=== PATIENT | female | born 1995 | race Hispanic/Latino ===

== ENCOUNTER 2020-06-27 03:37 | Emergency (ER) | payer OTHER ==
[2020-06-27] MEDS ORDERED: SODIUM CHLORIDE 0.9% 1000ML 1,000 ML IV ONE (03:49)
[2020-06-27] MEDS ORDERED: ACETAMINOPHEN EXTRA STRENGTH 500 MG TABLET ONE (04:20)
[2020-06-27] MEDS ORDERED: CEFTRIAXONE SODIUM 1 GM ONE (06:04)
== END 2020-06-27 07:10 | disposition home or self-care (01) ==
LOC: EDH 03:37
DX: N39.0 Urinary tract infection, site not specified (principal); N93.8 Other specified abnormal uterine and vaginal bleeding; E66.9 Obesity, unspecified; Z68.41 Body mass index [BMI] 40.0-44.9, adult
CPT/HCPCS: 36415; 76856; 80053; 81001; 81025; 83605; 85025; 86850; 86900; 86901; 87040 ×2; 87088; 96361; 96374; 99284; J0696; J7030

== ENCOUNTER 2020-10-15 20:04 | Emergency (ER) | payer OTHER ==
[~2020-10-15] VITALS: Ht 157.5 cm; Wt 77.1 kg
[2020-10-15 20:40] LABS: BASOPHILS % (AUTO) 0.4 % (0.0-5.0); EOSINOPHILS % (AUTO) 1.3 % (0.0-8.0); LYMPHOCYTES % (AUTO) 33.8 % (21.0-51.0); MEAN CORPUSCULAR HEMOGLOBIN 26.7 pg (27.0-33.0); MEAN CORPUSCULAR HGB CONC 30.8 g/dL (32.0-36.0); MONOCYTES % (AUTO) 4.5 % (3.0-13.0); NEUTROPHILS % (AUTO) 59.8 % (40.0-77.0); PLATELET COUNT (AUTO) 439 K/uL (130-400); RED CELL DISTRIBUTION WIDTH 14.5 % (11.0-15.5); WHITE BLOOD COUNT (AUTO) 9.7 K/uL (4.8-10.8)
[2020-10-15 20:53] LABS: INR 0.92 (0.85-1.15); PARTIAL THROMBOPLASTIN TIME 31.7 SEC (26.3-35.5)
[2020-10-15 20:58] LABS: CREATININE 0.8 mg/dL (0.5-1.5); POTASSIUM 3.5 mmol/L (3.5-5.1)
[2020-10-15 21:02] LABS: ALBUMIN 3.9 g/dL (3.5-5.0); BILIRUBIN,TOTAL 0.3 mg/dL (0.2-1.0); TOTAL PROTEIN, SERUM 8.8 g/dL (6.0-8.3)
[2020-10-15] MEDS ORDERED: SODIUM CHLORIDE 0.9% 50 ML IV ONE (21:30)
[2020-10-15] MEDS ORDERED: ESTROGENS,CONJUGATED 25 MG/VIAL IVP ONE (21:30)
== END 2020-10-15 22:56 | disposition home or self-care (01) ==
LOC: EDH 20:04
DX: N93.9 Abnormal uterine and vaginal bleeding, unspecified (principal)
CPT/HCPCS: 36415; 80053; 85025; 85730; 85610; 96365; 96366; 99284; J1410

== ENCOUNTER 2020-10-17 21:24 | Emergency (ER) | payer OTHER ==
[2020-10-17 22:47] LABS: APPEARANCE,URINE CLOUDY (CLEAR); BILIRUBIN,URINE NEGATIVE (NEGATIVE); COLOR,URINE RED (YELLOW); GLUCOSE, URINE (UA) NEGATIVE (NEGATIVE); KETONES,URINE 15 mg/dL (NEGATIVE); LEUKOCYTE ESTERASE ,URINE MODERATE (NEGATIVE); NITRATE,URINE POSITIVE (NEGATIVE); OCCULT BLOOD,URINE LARGE (NEGATIVE); PROTEIN,URINE >=300 mg/dL (NEGATIVE)
[2020-10-17 22:50] LABS: HCG,QUAL RESULT NEGATIVE (NEGATIVE)
[2020-10-17] MEDS ORDERED: CEPHALEXIN 500 MG CAPSULE ONE (22:58)
[2020-10-17] MEDS ORDERED: PHENAZOPYRIDINE HCL 200 MG TABLET ONE (22:58)
[2020-10-17] MEDS ORDERED: KETOROLAC TROMETHAMINE 60 MG/2 ML VIAL ONE (22:58)
[2020-10-17 23:03] LABS: RBC,URINE Full Field /HPF (0-1)
[2020-10-17 23:05] LABS: BACTERIA,URINE Few /HPF (None Seen)
== END 2020-10-17 23:38 | disposition home or self-care (01) ==
LOC: EDH 21:24
DX: N94.6 Dysmenorrhea, unspecified (principal); N39.0 Urinary tract infection, site not specified
CPT/HCPCS: 81001; 81025; 87088; 96372; 99283; J1885

== ENCOUNTER 2022-09-05 20:12 | Emergency (ER) | payer OTHER ==
[~2022-09-05] VITALS: Ht 160 cm; Wt 121.1 kg
[2022-09-05 20:58] LABS: APPEARANCE,URINE CLEAR (CLEAR); BILIRUBIN,URINE NEGATIVE (NEGATIVE); COLOR,URINE COLORLESS (YELLOW); GLUCOSE, URINE (UA) NEGATIVE (NEGATIVE); KETONES,URINE NEGATIVE (NEGATIVE); LEUKOCYTE ESTERASE ,URINE NEGATIVE Leu/uL (NEGATIVE); NITRATE,URINE NEGATIVE (NEGATIVE); PH,URINE 5.5 (5.0-8.0); PROTEIN,URINE 50 mg/dL (NEGATIVE); UROBILINOGEN,URINE 0.2 mg/dL (0.2-1.0)
[2022-09-05] MEDS ORDERED: ONDANSETRON 4MG INJ IVP ONE (21:00)
[2022-09-05] MEDS ORDERED: FAMOTIDINE 20MG VIAL IV ONE (21:00)
[2022-09-05] MEDS ORDERED: 0.9%NACL 1000ML 1,000 ML IV ONE (21:00)
[2022-09-05] MEDS ORDERED: KETOROLAC 15MG/ML VIAL (15MG/ML) IV ONE (21:00)
[2022-09-05 21:01] LABS: HCG,QUALITATIVE URINE NEGATIVE (NEGATIVE)
[2022-09-05 21:03] LABS: BASOPHILS % (AUTO) 0.4 % (0.0-5.0); HEMATOCRIT 36.4 % (36-48); LYMPHOCYTES % (AUTO) 16.3 % (21.0-51.0); MEAN CORPUSCULAR HEMOGLOBIN 27.7 pg (27.0-33.0); MEAN CORPUSCULAR HGB CONC 31.3 g/dL (32.0-36.0); MEAN CORPUSCULAR VOLUME 88.3 fL (79-99); MONOCYTES % (AUTO) 6.8 % (3.0-13.0); NEUTROPHILS % (AUTO) 75.1 % (40.0-77.0); PLATELET COUNT (AUTO) 320 K/uL (130-400); RBC,URINE 0-1 /HPF (0-1); RED BLOOD CELL COUNT(AUTO) 4.12 MIL/uL (4.00-5.50); RED CELL DISTRIBUTION WIDTH 14.3 % (11.0-15.5); SQUAMOUS EPITHELIAL CELL,UR RARE /HPF (0-2); WHITE BLOOD COUNT (AUTO) 10.5 K/uL (4.8-10.8)
[2022-09-05 21:06] LABS: CREATININE 1.3 mg/dL (0.5-1.5); POTASSIUM 3.3 mmol/L (3.5-5.1)
[2022-09-05 21:10] LABS: ALBUMIN 3.2 g/dL (3.5-5.0); TOTAL PROTEIN, SERUM 7.5 g/dL (6.0-8.3)
[2022-09-05] MEDS ORDERED: IOHEXOL 350 MG/ML 100ML INFUS..BTL IV ONE (21:28)
[2022-09-05] MEDS ORDERED: POTASSIUM BICARB/CIT AC 25 MEQ TABLET.EFF PO ONE (21:30)
[2022-09-05] MEDS ORDERED: ONDA4TAB10 PO (23:27)
[2022-09-05 23:30] VITALS: BP 115/70
== END 2022-09-05 23:37 | disposition home or self-care (01) ==
LOC: EDH 20:12
DX: R10.31 Right lower quadrant pain (principal); R11.2 Nausea with vomiting, unspecified; Z87.440 Personal history of urinary (tract) infections
CPT/HCPCS: 99285; 74177; 96374; 96375; 96361; 80053; 83690; 85025; 81001; 81025; 36415; J3490; J7030; J2405; J1885; Q9967

== ENCOUNTER 2023-11-25 10:52 | Emergency (ER) | payer OTHER ==
[~2023-11-25] VITALS: Ht 157.5 cm; Wt 124.3 kg
[~2023-11-25 10:52] MED LIST: ONDA4TAB10 PO
[2023-11-25 12:59] LABS: HEMATOCRIT 40.9 % (36-48); MEAN CORPUSCULAR HEMOGLOBIN 28.8 pg (27.0-33.0); MEAN CORPUSCULAR HGB CONC 30.8 g/dL (32.0-36.0); MEAN CORPUSCULAR VOLUME 93.6 fL (79-99); PLATELET COUNT (AUTO) 285 K/uL (130-400); RED BLOOD CELL COUNT(AUTO) 4.37 MIL/uL (4.00-5.50); RED CELL DISTRIBUTION WIDTH 13.8 % (11.0-15.5); WHITE BLOOD COUNT (AUTO) 4.9 K/uL (4.8-10.8)
[2023-11-25 13:13] LABS: BILIRUBIN,TOTAL 0.2 mg/dL (0.2-1.0); CREATININE 0.7 mg/dL (0.5-1.5); POTASSIUM 4.2 mmol/L (3.5-5.1); TOTAL PROTEIN, SERUM 7.3 g/dL (6.0-8.3)
[2023-11-25] MEDS ORDERED: PRED20TA3 PO (14:16)
[2023-11-25] MEDS ORDERED: BROM118S48 PO (14:16)
[2023-11-25] MEDS ORDERED: IBUP-2070 PO (14:16)
[2023-11-25 14:22] LABS: EOSINOPHILS % (MANUAL) 1 % (1-6); LYMPHOCYTES % (MANUAL) 25 % (22-44); MAN.DIFF COMMENT-IMPRESSION MANUAL DIFFERENTIAL; PLATELET MORPHOLOGY COMMENT ADEQUATE; REACTIVE LYMPHOCYTES 7 % (0-0); SEGMENTED NEUTROPHILS % 67 % (40-70); TOTAL CELLS COUNTED 100
[2023-11-25 14:26] VITALS: BP 105/80; PULSE 82; RESP 18; O2SAT 99
== END 2023-11-25 14:28 | disposition home or self-care (01) ==
LOC: EDH 10:52
DX: M54.89 Other dorsalgia (principal); R07.89 Other chest pain; J06.9 Acute upper respiratory infection, unspecified
CPT/HCPCS: 36415; 71046; 80053; 84703; 85025

== ENCOUNTER 2025-01-22 16:15 | Emergency (ER) | payer SELFPAY ==
[~2025-01-22] VITALS: Ht 160 cm; Wt 102.1 kg
[~2025-01-22 16:15] MED LIST changes: +BROM118S48 PO; +IBUP-2070 PO; +ONDA-243 PO; -ONDA4TAB10 PO; +PRED20TA3 PO
--- NOTE | 2025-01-22 17:31 | HMCIMG ---
NECK SOFT TISSUE CLINICAL HISTORY: POSSIBLE SWELLING/FOREIGN BODY COMPARISON: None TECHNIQUE: AP and lateral images were obtained. FINDINGS: The subglottic trachea appears patent. There is no hypopharyngeal dilatation. There is no radiopaque foreign body. IMPRESSION: There is no identified radiopaque foreign body. There is no hypopharyngeal dilatation.
[2025-01-22] MEDS ORDERED: AMOX500C2 PO (17:47)
--- NOTE | 2025-01-22 17:47 | ERN ---
General Chief Complaint: Sore Throat Stated Complaint: THROAT Time Seen by MD: 16:18 Source: patient History of Present Illness Initial Comments PATIENT IS A 29-YEAR-OLD FEMALE COMING IN TO BE EVALUATED FOR MILD DYSPHAGIA. PATIENT STATES THAT THE SYMPTOMS BEGAN EARLIER TODAY. SHE STATES THAT THE WHEN SHE WAS HE FEELS LIKE SOMETHING IS SCRATCH IN HER THROAT. Allergies: Coded Allergies: No Known Allergies (Unverified Allergy, Unknown, 08/29/15) Home Meds Active Scripts Ibuprofen (Ibuprofen) 600 Mg Tablet, 600 MG PO Q6H PRN for PAIN, #30 TAB Prov:[facility] 11/25/23 Prednisone (Prednisone) 20 Mg Tablet, 2 TAB PO DAILY for 5 Days, #10 TAB 0 Refills Prov:HIRAL BUSH [facility] 11/25/23 D-Methorphan Hb/P-Epd HCl/Bpm (Bromfed Dm Cough Syrup) 2 Mg-30 Mg-10 Mg/5 Ml Syrup, 5 ML PO Q6HPRN PRN for COUGH/COLD SYMPTOMS, #240 ML Prov:[facility]AL BUSH [facility] 11/25/23 Ondansetron (Ondansetron Odt) 4 Mg Tab.rapdis, 4 MG PO TID, #10 TAB Prov:NILS HESTER [employer] 09/05/22 Past Medical History Past Medical History: No Pertinent History Medical History Other: OBESITY Past Surgical History: None ROS Dictation CONSTITUTIONAL: NO CHILLS, NO FEVER, NO WEAKNESS, NO DIAPHORESIS, NO MALAISE. HEAD/FACE: NO SIGNS OF TRAUMA. EENT: NO EYE PAIN, NO BLURRED VISION, NO TEARING, NO DOUBLE VISION, NO EAR PAIN, NO EAR DISCHARGE, NO NOSE PAIN, NO NASAL CONGESTION,THROAT PAIN, THROAT SWELLING, NO MOUTH PAIN. RESPIRATORY: NO COUGH, NO ORTHOPNEA, NO SOB, NO STRIDOR, NO WHEEZING. CARDIOVASCULAR: NO CHEST PAIN, NO EDEMA, NO PALPITATIONS, NO SYNCOPE. GASTROINTESTINAL/ABDOMINAL: NO ABDOMINAL PAIN, NO CONSTIPATION, NO DIARRHEA, NO NAUSEA, NO VOMITING. GENITOURINARY: NO ABNORMAL DISCHARGE, NO DYSURIA, NO FREQUENT URINATION, NO HEMATURIA. NO COMPLAINTS OF PAIN IN THE GENITALS. MUSCULOSKELETAL: NO BACK PAIN, NO GOUT, NO JOINT PAIN, NO JOINT SWELLING, NO MUSCLE PAIN, NO MUSCLE STIFFNESS, NO NECK PAIN. INTEGUMENTARY: NO CHANGE IN COLOR, NO CHANGE IN HAIR/NAILS, NO DRYNESS, NO LESION, NO LUMPS, NO RASH. NEUROLOGICAL/PSYCH: NO ANXIETY, NOT DEPRESSED, NO EMOTIONAL PROBLEM, NO HEADACHE, NO NUMBNESS, NO PRE-EXISTING DEFICIT, NO HISTORY OF SEIZURES, NO TREMORS, NO WEAKNESS. HEMATOLOGIC/LYMPHATIC: NOT ANEMIC, NO HISTORY OF BLOOD CLOTS, NO APPARENT BLEEDING, NO BRUISING, GLANDS NOT SWOLLEN. ALL SYSTEMS NEGATIVE, EXCEPT NOTED. Physical Exam Physical Exam Dictation VITAL SIGNS: REVIEWED. GENERAL APPEARANCE: ALERT, ORIENTED X3, NO ACUTE DISTRESS, OBESE. HEAD AND FACE: NON-TRAUMATIC. EYES: PERRL, PINK CONJUNCTIVAS, EYELID NO TRAUMA, ANTERIOR CHAMBER CLEAR. EARS: PINNAS INTACT AND NO SIGNS OF TRAUMA OR ERYTHEMA. EAR CANALS CLEAR AND NO DISCHARGE. TMS NO ERYTHEMA. NOSE: NO DISCHARGE, NO BLEEDING. OROPHARYNX: MOUTH NORMAL, TEETH NO CARIES, TONGUE PINK. PHARYNX ERYTHEMA. T ONSILS EXUDATES, NO ABSCESSES NOTED. MUCOUS MEMBRANE MOIST. NECK: SUPPLE, NON-TENDER, NO THYROMEGALY, NO MASSES, NO JVD, NO BRUITS. BREAST: DEFERRED. CHEST: NO TENDERNESS, NO CREPITUS, NO PARADOXICAL MOVEMENT, NO RETRACTIONS. LUNGS: CLEAR, WELL-VENTILATED, SYMMETRIC, NO RALES, NO WHEEZING, NO RHONCHI, NO STRIDOR, GOOD BREATH SOUNDS BILATERALLY. HEART: REGULAR RATE, REGULAR RHYTHM, NO MURMUR, NO GALLOPS. VASCULAR: NO PERIPHERAL EDEMA. ABDOMEN: SOFT, POSITIVE BOWEL SOUNDS, NONDISTENDED, NO GUARDING, NONTENDER, NO REBOUND, NO MASSES NO HEPATOMEGALY, NO SPLENOMEGALY, NO LOPES'S SIGN, NO HERNIAS. RECTAL: DEFERRED. GENITAL: DEFERRED. NEUROLOGICAL: NORMAL SPEECH, GROSS MOTOR FUNCTION INTACT, GROSS SENSORY FUNCTION INTACT. MUSCULOSKELETAL: NECK NONTENDER, FULL RANGE OF MOTION, BACK NONTENDER, FULL RANGE OF MOTION. EXTREMITIES: NONTENDER, FULL RANGE OF MOTION. SKIN: COLOR PINK, DRY, NO TURGOR, NO RASH, NO LACERATIONS, NO ABRASIONS, NO CONTUSIONS. LYMPHATICS: DEFERRED. Results Laboratory and Microbiology Lab and Micro Result Laboratory Tests Test 01/22/25 16:44 Group A Streptococcus Rapid negative (NEGATIVE) Labs Reviewed?: Yes EKG/XRAY/US/CT/MRI EKG Comment [facility] [address] [place] [address] IMAGING REPORT Signed PATIENT: VIN WEBB MR#: [id number] : 1995 SEX: F AGE: 29 LOCATION: [facility] ORDER [id number] STATUS: REG ER REPORT#: [id number] SERVICE [id number] REASON: PSSIBLE SWELLING/FOREIGN BODY ORDERING PHYSICIAN: ABI MOREIRA MD PROCEDURE: NECK SOFT - NECK SOFT TISSUE NECK SOFT TISSUE CLINICAL HISTORY: POSSIBLE SWELLING/FOREIGN BODY COMPARISON: None TECHNIQUE: AP and lateral images were obtained. FINDINGS: The subglottic trachea appears patent. There is no hypopharyngeal dilatation. There is no radiopaque foreign body. IMPRESSION: There is no identified radiopaque foreign body. There is no hypopharyngeal dilatation. DICTATED BY: ANDREW JOSEPH DO DATE: 01/22/25 172 ELECTRONICALLY SIGNED BY: ANDREW JOSEPH DO DATE: 01/22/25 173 [facility] MDM: DIFFERENTIAL DIAGNOSIS: STREP PHARYNGITIS, PHARYNGITIS, PATIENT IS A 29-YEAR-OLD FEMALE COMING IN TO BE EVALUATED FOR THROAT DISCOMFORT. X-RAY DID NOT DISCLOSE ACUTE FINDINGS. PATIENT ON PHYSICAL EXAM THERE IS ERYTHEMA ON THE OROPHARYNGEAL AREA SUGGESTIVE OF PHARYNGITIS. PATIENT WILL BE DISCHARGED IN STABLE CONDITION WITH DIAGNOSIS OF PHARYNGITIS. MEDICATION WILL BE PROVIDED FOR SYMPTOMATIC RELIEF. ED Course Orders Procedure Category Date Status Time Neck Soft Tissue RAD 01/22/25 Resulted 16:39 Rapid (Group A Strep) LAB 01/22/25 Complete 16:42 ,Urine Test LAB 01/22/25 In Process 17:06 Vital Signs Date Time Temp Pulse Resp B/P (MAP) Pulse Ox O2 Delivery O2 Flow Rate FiO2 01/22/25 16:51 98.2 87 18 100/64 98 Room Air* 0 21 01/22/25 16:17 98.2 99 17 114/85 97 Room Air 0 DX & DISP Disposition: Discharge Departure Impression: Primary Impression: Pharyngitis Condition: Stable Scripts Amoxicillin (Amoxicillin) 500 Mg Capsule 1 CAP PO TID for 10 Days, #30 CAP 0 Refills Prov: ABI MOREIRA MD 01/22/25 Additional Instructions: FOLLOW-UP WITH PRIMARY CARE PROVIDER IN 1 TO 2 DAYS. TAKE MEDICATIONS DIRECTED HERE IN THE EMERGENCY ROOM. OKAY TO CONTINUE HOME MEDICATIONS UNLESS OTHERWISE DISCUSSED DURING YOUR VISIT IN THE EMERGENCY ROOM TODAY. RETURN TO YOUR NEAREST EMERGENCY ROOM IF SYMPTOMS WORSEN OR IF THERE IS NO IMPROVEMENT. CALL 911 IF YOU NEED IMMEDIATE ASSISTANCE. TAKE TYLENOL [id number] NEEDED AND IF NO CONTRAINDICATIONS ARE PRESENT. INCREASE ORAL HYDRATION. A WOUND CULTURE OR URINE CULTURE WAS ORDERED HERE IN THE EMERGENCY ROOM DEPARTMENT PLEASE FOLLOW-UP WITH PRIMARY CARE PROVIDER AND ADVISE THEM TO GET REPEAT PORTS FROM OUR FACILITY. IF YOU HAD ANY SAWYER WRAP/SPLINTS THAT WERE APPLIED HERE, PLEASE DO NOT REMOVE THEM UNTIL YOU SEE YOUR PRIMARY CARE OR SPECIALTY. REFERRALS: Referrals: NONE (PCP) NIK GUSTAFSON MD Time of Disposition: 17:46 ABI MOREIRA MD Jan 22, 2025 17:47
[2025-01-22 17:50] VITALS: BP 110/69; PULSE 75; RESP 17; TEMP 98.6; O2SAT 98
== END 2025-01-22 17:52 | disposition home or self-care (01) ==
LOC: EDH 16:15
DX: J02.9 Acute pharyngitis, unspecified (principal); E66.9 Obesity, unspecified; Z79.52 Long term (current) use of systemic steroids; Z68.39 Body mass index [BMI] 39.0-39.9, adult
CPT/HCPCS: 70360; 81025; 87880; 99284

== ENCOUNTER 2025-08-01 22:21 | Emergency (ER) | payer MEDICAID ==
[~2025-08-01] VITALS: Ht 160 cm; Wt 124.3 kg
[~2025-08-01 22:21] MED LIST changes: +AMOX500C2 PO; +IBUP-1492 PO; -IBUP-2070 PO
--- NOTE | 2025-08-01 22:40 | ERN ---
ED Note History of Present Illness Stated Complaint: C/O VAGINAL SPOTTING WITH CONSTIPATION, OB Chief Complaint: OB<20 weeks gest. Time Seen by MD: 22:28 Time Seen by Midlevel: 22:28 Dictation: The patient is a 29-year-old female who is who presents to the emergency department with complaints of vaginal bleeding onset prior to arrival after trying to use the restroom. Patient reports a just bright red spotting and has not saturated any pads but it became concerned patient reports she is seven weeks . Patient otherwise denies any nausea or vomiting, fevers, abdominal pain, urinary discomfort. Allergies: Coded Allergies: No Known Allergies (Unverified Allergy, Unknown, 08/29/15) Home Meds Active Scripts Amoxicillin (Amoxicillin) 500 Mg Capsule, 1 CAP PO TID for 10 Days, #30 CAP 0 Refills Prov:ABI MOREIRA MD 01/22/25 Ibuprofen (Ibuprofen) 600 Mg Tablet, 600 MG PO Q6H PRN for PAIN, #30 TAB Prov:[facility] 11/25/23 Prednisone (Prednisone) 20 Mg Tablet, 2 TAB PO DAILY for 5 Days, #10 TAB 0 Refi lls Prov:[facility] 11/25/23 D-Methorphan Hb/P-Epd HCl/Bpm (Bromfed Dm Cough Syrup) 2 Mg-30 Mg-10 Mg/5 Ml Syrup, 5 ML PO Q6HPRN PRN for COUGH/COLD SYMPTOMS, #240 ML Prov:[facility] 11/25/23 Ondansetron (Ondansetron Odt) 4 Mg Tab.rapdis, 4 MG PO TID, #10 TAB Prov:NILS HESTER [facility] 09/05/22 Past Medical History Past Medical History: No Pertinent History Additional Past Medical Hx: OBESITY Surgical History: None LMP: Jun 09, 2025 : 2 Para: 1 Aborts: 0 RN Note Reviewed/Agreed w/PFSH: Yes Review of System Dictation Constitutional: Negative for fever,chills, and weight loss Eyes: Negative for injury, pain,redness, and discharge ENT: Negative for injury,pain or swelling Cardiovascular: Negative for chest pain, palpitations, and edema Respiratory: Negative for shortness of breath, cough, and wheezing, Abdomen/GI: Negative for abdominal pain, nausea, vomiting, diarrhea, and constipation Back: Negative for injury and pain : Positive for vaginal bleeding MS/Extremity: Negative for injury and deformity Skin: Negative for rash, and discoloration Neuro: Negative for headache, weakness, numbness, tingling, and seizure Psych: Negative for suicide ideation, homicidal ideation, and hallucinations Initial Vital Sign VS Vital Signs Date Time Temp Pulse Resp B/P (MAP) Pulse Ox O2 Delivery O2 Flow Rate FiO2 08/01/25 22:23 98.8 100 20 127/74 100 Room Air 08/02/25 00:21 0 21 Physical Exam Dictation Vital Signs reviewed General Appearance: Alert, oriented x 3, no acute distress, well developed, nourished. Head and Face: non-traumatic. Eyes: PERRL, pink conjunctivas, eyelid no trauma, anterior chamber with arcus senilis. Ears: Pinnas intact and no signs of trauma or erythema ear canals clear and no discharge TM no erythema Nose: No discharge, no bleeding. Oropharynx: Mouth normal, tongue pink. pharynx clear,no erythema, tonsils no exudates, no abscesses noted, mucous membrane moist Neck: Supple, non-tender, no thyromegaly, no masses, no JVD, no bruits Breast:Deferred Chest:No tenderness, no crepitus, no paradoxical movement, no retractions Lungs:Clear, well-ventilated, symmetric, no rales, no wheezing, no rhonchi, no stridor, good breath sounds bilaterally Heart: Regular rate, regular rhythm, no murmur, no gallops Vascular: no peripheral edema, Abdomen: Soft, positive bowel sounds, nondistended, no guarding, nontender, no rebound, no masses no hepatomegaly, no splenomegaly, no Fay's sign, no hernias. Rectal: Deferred Genital: Deferred Neurological: Normal speech, motor function intact, sensory function intact Musculoskeletal: Neck nontender, full range of motion, back nontender, full range of motion, Extremities: nontender, full range of motion Skin: Color pink, dry, no turgor, no rash, no lacerations, no abrasions, no contusions. Lymphatic: Deferred Results (Laboratory/Radiology) Laboratory/Radiology Laboratory Tests Test 08/01/25 23:29 08/02/25 00:10 White Blood Count 8.5 K/uL (4.8-10.8) Red Blood Count 3.65 MIL/uL (4.00-5.50) L Hemoglobin 10.9 g/dL (12.0-16.0) L Hematocrit 33.3 % (36-48) L Mean Corpuscular Volume 91.2 fL (79-99) Mean Corpuscular Hemoglobin 29.9 pg (27.0-33.0) Mean Corpuscular Hemoglobin Concent 32.7 g/dL (32.0-36.0) Red Cell Distribution Width 13.4 % (11.0-15.5) Platelet Count 329 K/uL (130-400) Mean Platelet Volume 10.4 fL (7.5-10.5) Immature Granulocyte % (Auto) 0.2 % (0-1) Neutrophils (%) (Auto) 66.7 % (40.0-77.0) Lymphocytes (%) (Auto) 25.1 % (21.0-51.0) Monocytes (%) (Auto) 6.0 % (3.0-13.0) Eosinophils (%) (Auto) 1.5 % (0.0-8.0) Basophils (%) (Auto) 0.5 % (0.0-5.0) Neutrophils # (Auto) 5.7 K/uL (1.8-7.7) Lymphocytes # (Auto) 2.1 K/uL (1.0-4.8) Monocytes # (Auto) 0.5 K/uL (0.1-1.0) Eosinophils # (Auto) 0.13 K/uL (0.00-0.70) Basophils # (Auto) 0.04 K/uL (0.00-0.20) Absolute Immature Granulocyte (auto 0.02 K/uL (0-1) Nucleated Red Blood Cells 0.0 % (0.0-0.19) Sodium Level 136 mmol/L (136-145) Potassium Level 3.9 mmol/L (3.5-5.1) Chloride Level 104 mmol/L (101-111) Carbon Dioxide Level 27 mmol/L (21-32) Blood Urea Nitrogen 12 mg/dL (7-18) Creatinine 0.6 mg/dL (0.5-1.0) Glomerular Filtration Rate Calc 125 mL/min (>90) Random Glucose 89 mg/dL (70-105) Total Calcium 8.8 mg/dL (8.5-10.1) Human Chorionic Gonadotropin, Quant 06905 mIU/mL (0-5) H Urine Color LIGHT-YELLOW (YELLOW) Urine Appearance CLEAR (CLEAR) Urine pH 5.5 (5.0-8.0) Urine Specific Sumner 1.018 (1.001-1.031) Urine Protein NEGATIVE mg/dL (NEGATIVE) Urine Glucose (UA) NEGATIVE mg/dL (NEGATIVE) Urine Ketones NEGATIVE mg/dL (NEGATIVE) Urine Occult Blood +- (TRACE) (NEGATIVE) H Urine Nitrate NEGATIVE (NEGATIVE) Urine Bilirubin NEGATIVE mg/dL (NEGATIVE) Urine Urobilinogen 0.2 mg/dL (0.2-1.0) Urine Leukocyte Esterase 250 Darian/uL (NEGATIVE) H Urine RBC 6-10 /HPF (0-1) H Urine WBC 11-25 /HPF (0-1) H Urine Squamous Epithelial Cells FEW /HPF (0-2) Urine Bacteria None /HPF (None Seen) REASON: VAGINAL BLEEDING ORDERING PHYSICIAN: HONORIO BECERRA CLINICAL PSYCHOLOGY TEACHER PROCEDURE: OB <14 - US OB <14 WEEKS EXAM: US Obstetrical, Complete <14 weeks. CLINICAL HISTORY: Vaginal bleeding TECHNIQUE: Transabdominal imaging of the maternal pelvis and a < 14-week gestation with image documentation. COMPARISON: None provided. FINDINGS: GESTATION: Single intrauterine . Gestational age by: LMP: 7 weeks 4 days Sac size (2.83 cm): 8 weeks 1 day CRL (1.32 cm): 7 weeks 4 days Ultrasound average: 7 weeks 6 days HEART RATE: 160 bpm YOLK SAC: Present UTERUS: 7.7 x 4.8 x 7 cm. No myometrial mass identified. CERVIX: Closed. Unremarkable. OVARIES: Right ovary: 2.7 x 1.9 x 2.5 cm, normal flow, with a 1.4 x 1.1 cm corpus luteum cyst. Left ovary: 2.6 x 1.4 x 2.2 cm, normal flow, with a 1.1 x 1.1 cm follicle. FREE FLUID: None. ADDITIONAL FINDINGS: A small subchorionic bleed measuring 0.3 x 0.4 x 1.8 cm. IMPRESSION: Single viable intrauterine with a gestational age of 7 weeks 6 days by ultrasound. Small subchorionic bleed. /[facility] Labs Reviewed?: Yes ED Course ED Course Orders Procedure Category Date Status Time Cbc With Differential LAB 08/01/25 Complete 22:33 Hcg,Quantitative LAB 08/01/25 Complete 22:33 Us Ob <14 Weeks US 08/01/25 Resulted 22:33 Basic Metabolic Panel LAB 08/01/25 Complete 22:33 Urinalysis Profile LAB 08/01/25 Complete 22:33 Culture Urine DONOVAN 08/02/25 In Process 00:34 Ceftriaxone 1g Vial PHA 08/02/25 In Process (Rocephine 1g Inj) 01:00 Current Medications Medications (Trade) Dose Ordered Sig/Adam Route PRN Reason Start Time Stop Time Status Last Admin Dose Admin Ceftriaxone Sodium (ROCEphine 1G INJ) 1 gm ONCE ONCE IM 08/02/25 01:00 08/02/25 01:01 08/02/25 00:54 Vital Signs Date Time Temp Pulse Resp B/P (MAP) Pulse Ox O2 Delivery O2 Flow Rate FiO2 08/02/25 00:21 98.4 92 16 118/72 100 Room Air* 0 21 08/01/25 22:23 98.8 100 20 127/74 100 Room Air Medical Decision Making MDM The patient is a 29-year-old female who is who presents to the emergency department with complaints of vaginal bleeding onset prior to arrival after tr selma to use the restroom. Patient reports a just bright red spotting and has not saturated any pads but it became concerned patient reports she is seven weeks . Patient otherwise denies any nausea or vomiting, abdominal pain, fevers, urinary discomfort. CBC showed no leukocytosis, mild normocytic anemia, chemistry showed normal renal function, hCG levels [id number], urinalysis positive for leukocyte esterase. Patient will be discharged on antibiotics. Ob ultrasound revealed single viable intrauterine with gestational age of seven weeks six days and a small subchorionic bleed. Patient with a only vaginal spotting. No pads saturated. Patient instructed to follow up with the OBGYN. On physical exam patient is in no acute distress, nontoxic appearance, stable vital signs Differential diagnosis: Constipation, threatened , ectopic Need for hospitalization: Patient does not meet criteria for hospitalization. There are no social concerns with this patient. DX & DISP Disposition: Discharge Departure Impression: Primary Impression: 7 weeks gestation of Additional Impressions: Subchorionic bleed, UTI (urinary tract infection) Condition: Stable Scripts Cephalexin Monohydrate (Keflex) 500 Mg Cap 500 MG PO QID for 5 Days, #20 CAP Prov: HONORIO BECERRA 08/02/25 Additional Instructions: Please take your medications as prescribed. Follow up with the your OBGYN as soon as possible. Avoid any strenuous physical activity, no sexual activity, if you develop severe vaginal bleeding or symptoms worsen please return to ER. FOLLOW-UP WITH PRIMARY CARE PROVIDER IN 1 TO 2 DAYS. TAKE MEDICATIONS DIRECTED HERE IN THE EMERGENCY ROOM. OKAY TO CONTINUE HOME MEDICATIONS UNLESS OTHERWISE DISCUSSED DURING YOUR VISIT IN THE EMERGENCY ROOM TODAY. RETURN TO YOUR NEAREST EMERGENCY ROOM IF SYMPTOMS WORSEN OR IF THERE IS NO IMPROVEMENT. CALL 911 IF YOU NEED IMMEDIATE ASSISTANCE. TAKE TYLENOL [id number] NEEDED AND IF NO CONTRAINDICATIONS ARE PRESENT. INCREASE ORAL HYDRATION. A WOUND CULTURE OR URINE CULTURE WAS ORDERED HERE IN THE EMERGENCY ROOM DEPARTMENT PLEASE FOLLOW-UP WITH PRIMARY CARE PROVIDER AND ADVISE THEM TO GET REPEAT PORTS FROM OUR FACILITY. IF YOU HAD ANY SAWYER WRAP/SPLINTS THAT WERE APPLIED HERE, PLEASE DO NOT REMOVE THEM UNTIL YOU SEE YOUR PRIMARY CARE OR SPECIALTY. Referrals: NONE (PCP) Time of Disposition: 01:05 I have reviewed the case, and I agree with, Diagnosis and Plan HONORIO BECERRA Aug 01, 2025 22:40
[2025-08-01 23:38] LABS: IMMATURE GRANULOCYTE ABSOLUTE 0.02 K/uL (0-1); NUCLEATED RED BLOOD CELLS 0.0 % (0.0-0.19); PLATELET COUNT (AUTO) 329 K/uL (130-400); RED BLOOD CELL COUNT(AUTO) 3.65 MIL/uL (4.00-5.50); RED CELL DISTRIBUTION WIDTH 13.4 % (11.0-15.5); WHITE BLOOD COUNT (AUTO) 8.5 K/uL (4.8-10.8)
[2025-08-01 23:45] LABS: CREATININE 0.6 mg/dL (0.5-1.0); GLOMERULAR FILTR. RATE CALC 125.0 mL/min (>90); GLUCOSE,RANDOM 89.0 mg/dL (70-105); SODIUM SERUM 136.0 mmol/L (136-145); UREA NITROGEN, BLOOD 12.0 mg/dL (7-18)
[2025-08-02 00:12] LABS: HCG,QUANTITATIVE 61911.0 mIU/mL (0-5)
--- NOTE | 2025-08-02 00:19 | HMCIMG ---
EXAM: US Obstetrical, Complete <14 weeks. CLINICAL HISTORY: Vaginal bleeding TECHNIQUE: Transabdominal imaging of the maternal pelvis and a < 14-week gestation with image documentation. COMPARISON: None provided. FINDINGS: GESTATION: Single intrauterine . Gestational age by: LMP: 7 weeks 4 days Sac size (2.83 cm): 8 weeks 1 day CRL (1.32 cm): 7 weeks 4 days Ultrasound average: 7 weeks 6 days HEART RATE: 160 bpm YOLK SAC: Present UTERUS: 7.7 x 4.8 x 7 cm. No myometrial mass identified. CERVIX: Closed. Unremarkable. OVARIES: Right ovary: 2.7 x 1.9 x 2.5 cm, normal flow, with a 1.4 x 1.1 cm corpus luteum cyst. Left ovary: 2.6 x 1.4 x 2.2 cm, normal flow, with a 1.1 x 1.1 cm follicle. FREE FLUID: None. ADDITIONAL FINDINGS: A small subchorionic bleed measuring 0.3 x 0.4 x 1.8 cm. IMPRESSION: Single viable intrauterine with a gestational age of 7 weeks 6 days by ultrasound. Small subchorionic bleed. /[place]
[2025-08-02 00:29] LABS: APPEARANCE,URINE CLEAR (CLEAR); GLUCOSE, URINE (UA) NEGATIVE (NEGATIVE); LEUKOCYTE ESTERASE ,URINE 250 Leu/uL (NEGATIVE); NITRATE,URINE NEGATIVE (NEGATIVE); OCCULT BLOOD,URINE +- (TRACE) (NEGATIVE)
[2025-08-02 00:33] LABS: ADD UA MICROSCOPIC YES
[2025-08-02 00:34] LABS: SQUAMOUS EPITHELIAL CELL,UR FEW /HPF (0-2)
[2025-08-02] MEDS ORDERED: CEPH500B PO (01:05)
[2025-08-02 01:21] VITALS: BP 120/74; PULSE 88; RESP 16; TEMP 98.4; O2SAT 100
== END 2025-08-02 01:22 | disposition home or self-care (01) ==
LOC: EDH 22:21
DX: O20.8 Other hemorrhage in early pregnancy (principal); O23.42 Unspecified infection of urinary tract in pregnancy, second trimester; N39.0 Urinary tract infection, site not specified; O26.891 Other specified pregnancy related conditions, first trimester; R10.2 Pelvic and perineal pain; Z79.52 Long term (current) use of systemic steroids; Z3A.01 Less than 8 weeks gestation of pregnancy
CPT/HCPCS: 99285; 76801; 80048; 84702; 85025; 87086; 81001; 36415; 96372; J0696

== ENCOUNTER 2025-10-15 12:36 | Emergency (ER) | payer MEDICAID ==
[~2025-10-15] VITALS: Ht 160 cm; Wt 124.3 kg
[2025-10-15 13:06] LABS: NUCLEATED RED BLOOD CELLS 0.0 % (0.0-0.19); PLATELET COUNT (AUTO) 333.0 K/uL (130-400); RED BLOOD CELL COUNT(AUTO) 3.93 MIL/uL (4.00-5.50); RED CELL DISTRIBUTION WIDTH 13.0 % (11.0-15.5); WHITE BLOOD COUNT (AUTO) 8.5 K/uL (4.8-10.8)
[2025-10-15 13:13] LABS: GLUCOSE, URINE (UA) NEGATIVE (NEGATIVE); LEUKOCYTE ESTERASE ,URINE 500 Leu/uL (NEGATIVE); NITRATE,URINE NEGATIVE (NEGATIVE); OCCULT BLOOD,URINE NEGATIVE (NEGATIVE); SQUAMOUS EPITHELIAL CELL,UR MANY /HPF (0-2)
[2025-10-15 13:15] LABS: APPEARANCE,URINE HAZY (CLEAR)
[2025-10-15 13:19] LABS: HCG,QUALITATIVE URINE POSITIVE (NEGATIVE)
[2025-10-15 13:30] LABS: CREATININE 0.5 mg/dL (0.5-1.0); GLOMERULAR FILTR. RATE CALC 129.0 mL/min (>90); GLUCOSE,RANDOM 85.0 mg/dL (70-105); SODIUM SERUM 138.0 mmol/L (136-145); UREA NITROGEN, BLOOD 5.0 mg/dL (7-18)
--- NOTE | 2025-10-15 13:44 | ERN ---
General Chief Complaint: Abdominal Pain in Stated Complaint: PAIN/ Time Seen by MD: 12:42 Source: patient History of Present Illness Initial Comments Patient is a coming in complaining a abdominal discomfort. She states he is 18 weeks recently has been on performed that showed no she states that her obgyn is dr drew. Allergies: Coded Allergies: No Known Allergies (Unverified Allergy, Unknown, 08/29/15) Home Meds Active Scripts Cephalexin Monohydrate (Keflex) 500 Mg Cap, 500 MG PO QID for 5 Days, #20 CAP Prov:HONORIO BECERRA [employer] OPERATOR 08/02/25 Amoxicillin (Amoxicillin) 500 Mg Capsule, 1 CAP PO TID for 10 Days, #30 CAP 0 Refills Prov:ABI MOREIRA MD 01/22/25 Ibuprofen (Ibuprofen) 600 Mg Tablet, 600 MG PO Q6H PRN for PAIN, #30 TAB Prov:HIRAL BUSH [employer] OPERATOR 11/25/23 Prednisone (Prednisone) 20 Mg Tablet, 2 TAB PO DAILY for 5 Days, #10 TAB 0 Refills Prov:HIRAL BUSH [facility] 11/25/23 D-Methorphan Hb/P-Epd HCl/Bpm (Bromfed Dm Cough Syrup) 2 Mg-30 Mg-10 Mg/5 Ml Syrup, 5 ML PO Q6HPRN PRN for COUGH/COLD SYMPTOMS, #240 ML Prov:HIRAL BUSH [facility] 11/25/23 Ondansetron (Ondansetron Odt) 4 Mg Tab.rapdis, 4 MG PO TID, #10 TAB Prov:NILS HESTER [employer] OPERATOR 09/05/22 Past Medical History Past Medical History: No Pertinent History Medical History Other: OBESITY Past Surgical History: None Female( History) : 2 Para: 1 Aborts: 0 ROS Dictation CONSTITUTIONAL: No chills, no fever, no weakness, no diaphoresis, no malaise. HEAD/FACE: No signs of trauma. EENT: No eye pain, no blurred vision, no tearing, no double vision, no ear cleo n, no ear discharge, no nose pain, no nasal congestion, no throat pain, no throat swelling, no mouth pain. RESPIRATORY: No cough, no orthopnea, no SOB, no stridor, no wheezing. CARDIOVASCULAR: No chest pain, no edema, no palpitations, no syncope. GASTROINTESTINAL/ABDOMINAL: abdominal pain, no constipation, no diarrhea, no nausea, no vomiting. GENITOURINARY: No abnormal discharge, no dysuria, no frequent urination, no hematuria. No complaints of pain in the genitals. MUSCULOSKELETAL: No back pain, no gout, no joint pain, no joint swelling, no muscle pain, no muscle stiffness, no neck pain. INTEGUMENTARY: No change in color, no change in hair/nails, no dryness, no lesion, no lumps, no rash. NEUROLOGICAL/PSYCH: No anxiety, not depressed, no emotional problem, no headache, no numbness, no pre-existing deficit, no history of seizures, no tremors, no weakness. HEMATOLOGIC/LYMPHATIC: Not anemic, no history of blood clots, no apparent bleeding, no bruising, glands not swollen. All Systems Negative, Except as Noted. Physical Exam Physical Exam Dictation VITAL SIGNS: Reviewed. GENERAL APPEARANCE: Alert, oriented x3, no acute distress, obese. HEAD AND FACE: Non-traumatic. EYES: PERRL, pink conjunctivas, eyelid no trauma, anterior chamber clear. EARS: Pinnas intact and no signs of trauma or erythema. Ear canals clear and no discharge. TMs no erythema. NOSE: No discharge, no bleeding. OROPHARYNX: Mouth normal, teeth no caries, tongue pink. Pharynx clear, no er ythema. Tonsils no exudates, no abscesses noted. Mucous membrane moist. NECK: Supple, non-tender, no thyromegaly, no masses, no JVD, no bruits. BREAST: Deferred. CHEST: No tenderness, no crepitus, no paradoxical movement, no retractions. LUNGS: Clear, well-ventilated, symmetric, no rales, no wheezing, no rhonchi, no stridor, good breath sounds bilaterally. HEART: Regular rate, regular rhythm, no murmur, no gallops. VASCULAR: No peripheral edema. ABDOMEN: Soft, positive bowel sounds, nondistended, no guarding, nontender, no rebound, no masses no hepatomegaly, no splenomegaly, no Fay's sign, no hernias. RECTAL: Deferred. GENITAL: Deferred. NEUROLOGICAL: Normal speech, gross motor function intact, gross sensory function intact. MUSCULOSKELETAL: Neck nontender, full range of motion, back nontender, full range of motion. EXTREMITIES: Nontender, full range of motion. SKIN: Color pink, dry, no turgor, no rash, no lacerations, no abrasions, no contusions. LYMPHATICS: Deferred. Results Laboratory and Microbiology Lab and Micro Result Laboratory Tests Test 10/15/25 12:55 10/15/25 12:56 Urine Color LIGHT-YELLOW (YELLOW) Urine Appearance HAZY (CLEAR) Urine pH 6.0 (5.0-8.0) Urine Specific Starlight 1.010 (1.001-1.031) Urine Protein NEGATIVE mg/dL (NEGATIVE) Urine Glucose (UA) NEGATIVE mg/dL (NEGATIVE) Urine Ketones 40 mg/dL (NEGATIVE) H Urine Occult Blood NEGATIVE (NEGATIVE) Urine Nitrate NEGATIVE (NEGATIVE) Urine Bilirubin NEGATIVE mg/dL (NEGATIVE) Urine Urobilinogen 0.2 mg/dL (0.2-1.0) Urine Leukocyte Esterase 500 Darian/uL (NEGATIVE) H Urine RBC 0-1 /HPF (0-1) Urine WBC 26-50 /HPF (0-1) H Urine Squamous Epithelial Cells MANY /HPF (0-2) Urine Bacteria RARE /HPF (None Seen) Urine HCG, Qualitative POSITIVE (NEGATIVE) H White Blood Count 8.5 K/uL (4.8-10.8) Red Blood Count 3.93 MIL/uL (4.00-5.50) L Hemoglobin 11.5 g/dL (12.0-16.0) L Hematocrit 36.0 % (36-48) Mean Corpuscular Volume 91.6 fL (79-99) Mean Corpuscular Hemoglobin 29.3 pg (27.0-33.0) Mean Corpuscular Hemoglobin Concent 31.9 g/dL (32.0-36.0) L Red Cell Distribution Width 13.0 % (11.0-15.5) Platelet Count 333 K/uL (130-400) Mean Platelet Volume 10.3 fL (7.5-10.5) Nucleated Red Blood Cells 0.0 % (0.0-0.19) Sodium Level 138 mmol/L (136-145) Potassium Level 4.1 mmol/L (3.5-5.1) Chloride Level 104 mmol/L (101-111) Carbon Dioxide Level 25 mmol/L (21-32) Blood Urea Nitrogen 5 mg/dL (7-18) L Creatinine 0.5 mg/dL (0.5-1.0) Glomerular Filtration Rate Calc 129 mL/min (>90) Random Glucose 85 mg/dL (70-105) Total Calcium 9.0 mg/dL (8.5-10.1) Human Chorionic Gonadotropin, Quant 07880 mIU/mL (0-5) H Labs Reviewed?: Yes EKG/XRAY/US/CT/MRI Ultrasound Comment Ultrasound OB- 18 weeks by date no subchorionic bleed MDM MDM: Differential diagnosis: Threatened miscarriage, Miscarriage, abdominal discomfort,uti Rationale: Tests considered and ordered secondary to shared decision making include: Previous outside records reviewed: Old ER visits. Risk of complication and/or morbidity or mortality of patient management: None Medications-Per medication reconciliation Need for hospitalization: Patient does not meet criteria for hospitalization. Need for emergency major/minor surgery: No In his is a 30-year-old female coming in complaining of abdominal discomfort. S he was stating that she had a recent ultrasound performed that she has a small subchorionic hematoma was here for further evaluation. Her OBGYN in his Dr. Drew. Ultrasound did not disclose any abnormalities fetus is 18 weeks by ultrasound good heart rate. Patient will be discharged in stable condition with a diagnosis of threatened miscarriage. Laboratory workup also positive for UTI ED Course Orders Procedure Category Date Status Time Cbc Without LAB 10/15/25 Complete Differential 12:49 Basic Metabolic Panel LAB 10/15/25 Complete 12:49 Urinalysis LAB 10/15/25 Complete W/Microscopic 12:49 ,Urine Test LAB 10/15/25 Complete 12:49 Hcg,Quantitative LAB 10/15/25 Complete 12:49 Culture Urine DONOVAN 10/15/25 In Process 13:15 Us Ob >14 Weeks US 10/15/25 Taken 12:49 Ceftriaxone 1g Vial PHA 10/15/25 Transmitted (Rocephine 1g Inj) 14:00 Vital Signs Date Time Temp Pulse Resp B/P (MAP) Pulse Ox O2 Delivery O2 Flow Rate FiO2 10/15/25 13:22 87 18 102/58 96 Room Air* 0 21 10/15/25 12:38 98.1 101 18 129/58 100 0 DX & DISP Disposition: Discharge Departure Impression: Primary Impression: Miscarriage, threatened, early Condition: Stable Scripts Cephalexin Monohydrate (Keflex) 500 Mg Cap 1 CAP PO BID for 10 Days, #20 CAP 0 Refills Prov: ABI MOREIRA MD 10/15/25 Additional Instructions: FOLLOW-UP WITH PRIMARY CARE PROVIDER IN 1 TO 2 DAYS. TAKE MEDICATIONS DIRECTED HERE IN THE EMERGENCY ROOM. OKAY TO CONTINUE HOME MEDICATIONS UNLESS OTHERWISE DISCUSSED DURING YOUR VISIT IN THE EMERGENCY ROOM TODAY. RETURN TO YOUR NEAREST EMERGENCY ROOM IF SYMPTOMS WORSEN OR IF THERE IS NO IMPROVEMENT. CALL 911 IF YOU NEED IMMEDIATE ASSISTANCE. TAKE TYLENOL [id number] NEEDED AND IF NO CONTRAINDICATIONS ARE PRESENT. INCREASE ORAL HYDRATION. A WOUND CULTURE OR URINE CULTURE WAS ORDERED HERE IN THE EMERGENCY ROOM DEPARTMENT PLEASE FOLLOW-UP WITH PRIMARY CARE PROVIDER AND ADVISE THEM TO GET REPORTS FROM OUR FACILITY. IF YOU HAD ANY SAWYER WRAP/SPLINTS THAT WERE APPLIED HERE, PLEASE DO NOT REMOVE THEM UNTIL YOU SEE YOUR PRIMARY CARE OR SPECIALTY. Referrals: Referrals: SELF,REFERRAL (PCP) UNRULY DREW MD Time of Disposition: 13:43 ABI MOREIRA MD Oct 15, 2025 13:44
--- NOTE | 2025-10-15 14:33 | HMCIMG ---
EXAM: US Obstetrical, Complete >14 weeks. CLINICAL HISTORY: abd pain TECHNIQUE: Transabdominal imaging of the maternal pelvis and a > 14 week gestation with image documentation. COMPARISON: Study dated 08/01/2025 FINDINGS: FETUS: There is a single living intrauterine gestation. POSITION: position is breech. HEART RATE: The heart rate is 153 beats per minute. BIOMETRICS: Based on composite biometry, the estimated gestational age by ultrasound is 18 weeks 4 days The fetus's weight measures approximately 245 grams. ANATOMIC SURVEY: The visualized anatomy is unremarkable. PLACENTA: The placenta is anterior the grade I maturity. No sonographic evidence for previa or abruption. AMNIOTIC FLUID: Within normal limits. Amniotic fluid index 10.3 cm CERVIX: Closed.The cervical length measures approximately 2.4 cm IMPRESSION: 1. Single live intrauterine at 18 weeks 4 days gestation, breech presentation. 2. No acute findings or anatomic abnormalities identified. 3. Cervical length 2.4 cm. /Shreya
[2025-10-15 14:40] VITALS: BP 101/55; PULSE 85; RESP 18; TEMP 98.1; O2SAT 98
== END 2025-10-15 14:39 | disposition home or self-care (01) ==
LOC: EDH 12:36
DX: O20.0 Threatened abortion (principal); Z3A.18 18 weeks gestation of pregnancy; Z79.52 Long term (current) use of systemic steroids
CPT/HCPCS: 99285; 96374; 76805; 80048; 84702; 85027; 87086; 81001; 81025; 36415; J0696